=== PATIENT | female | born 1995 | race Caucasian/White ===

== ENCOUNTER 2020-04-26 18:15 | Emergency (ER) | payer SELFPAY ==
[2020-04-26 18:22] VITALS: BP 147/88; PULSE 92; RESP 20; TEMP 36.5; O2SAT 96
--- NOTE | 2020-04-26 18:30 | DI.RAD_ITS ---
EXAM: XR FOREARM LT CLINICAL HISTORY: Dog bite. TECHNIQUE: 2D digital imaging was performed. COMPARISON: No exams were available for comparison FINDINGS: BONES: No acute fracture is present. No bony destructive lesion is seen. Visualized portion of elbow and wrist joints are unremarkable. SOFT TISSUE: Mild soft tissue swelling on the dorsal lateral aspect of the forearm. No radiopaque fo reign bodies. IMPRESSION: Mild soft tissue swelling of the dorsal lateral aspect of the forearm. DATA REPOSITORY: RADIATION DOSE DELIVERED:
--- NOTE | 2020-04-26 18:47 | W.ED.GENAD ---
Discharge Plan Disposition Patient Disposition: HOME Condition: Stable Discharge Details Clinical Impression: Dog bite of left forearm Primary Care Provider: [facility] Provider: Leighann Hudson Home Meds and New Rx's Prescriptions: New amoxicillin-pot clavulanate [Augmentin] 875-125 mg tablet 1 tab PO BID 10 Days Qty: 20 RF: 0 Discharge Instructions Instructions: Rabies Vaccine (By injection), Rabies Immune Globulin (By injection), Animal Bite (ED) Additional Instructions: Follow up with primary care provider in 3-5 days. Return to ED sooner if any worsening or concerns. Increase oral fluids. Please take Tylenol or Ibuprofen with food every 4-6 hours as needed for pain and swelling. The rabies prophylaxis requires additional doses at day 0 which we gave you today, day 3, day 7 and day 14 from the bite. You may follow-up with the infusion center for this. You are placed on a care management list so they will help you facilitate these appointment for the rabies prophylaxis. Medical Decision Making 24-year-old female presents to the ED with chief complaint of dog bite to her left forearm, initial exam there is 2 superficial puncture wounds noted to the mid forearm with surrounding ecchymosis and swelling. Patient has full range of motion noted to her wrist and elbow, she states that she was walking along the street and met a person with a dog who asked her to come and help her socialize the dog. The dog latched on her arm for approximately 1 to 2 minutes and the fund controller of the dog ran off without answer any question about vaccination status. Please were contacted vaccination status of the dog is unknown at this time. Discussed rabies postexposure prophylaxis with patient and she does request the prophylaxis at this time. Patient given tetanus booster, rabies vaccine administered by staffing operations manager and rabies immunoglobulin infiltrated into the wound site by staffing operations manager. Imaging protocol: XR Left forearm. Views: 2 views. COMPARISON: No relevant prior studies available. FINDINGS: Normal anatomic alignment and bone density. No acutely displaced fracture or dislocation. No aggressive osseous lesions. Soft tissue swelling at the dorsal aspect of the forearm. No radiopaque foreign bodies. IMPRESSION: Soft tissue swelling at the dorsal aspect of the forearm without acute skeletal injury or radiopaque foreign bodies. Patient instructed to return for additional vaccine administration on day 3, 7, 14 and 21 if needed patient placed on care management list for follow-up to have this done in the infusion center if possible. Patient instructed to call if she does not hear from care management within 24 to 48 hours as day #3 is on Wednesday. Patient verbalized understanding. Discussed home care, rest ice compression elevation, discuss strict return instructions to return for any signs of infection or worsening, this text was generated using [employer] system, please disregard any oddities of phrase or misspellings. HPI General Mode of arrival: ambulatory. Date/Time Provider Initiated Documentation: 04/26/20 18:17. Limitations to Documentation: no limitations. Information obtained by: patient. HPI Narrative: 24-year-old female presents to the ED with chief complaint of dog bite to her left forearm, initial exam there is 2 superficial puncture wounds noted to the mid forearm with surrounding ecchymosis and swelling. Patient has full range of motion noted to her wrist and elbow, she states that she was walking along the street and met a person with a dog who asked her to come and help her socialize the dog. The dog latched on her arm for approximately 1 to 2 minutes and the fund controller of the dog ran off without answer any question about vaccination status. Please were contacted vaccination status of the dog is unknown at this time. Discussed rabies postexposure prophylaxis with patient and she does request the prophylaxis at this time. Related Data Home Medications Medication Instructions Recorded Confirmed amoxicillin-pot clavulanate 1 tab PO BID 10 Days #20 tab 04/26/20 [Augmentin] Previous Rx's Medication Instructions Recorded amoxicillin-pot clavulanate 1 tab PO BID 10 Days #20 tab 04/26/20 [Augmentin] Allergies Allergy/AdvReac Type Severity Reaction Status Date / Time dial soap Allergy Skin Rash Uncoded 04/26/20 18:26 General Stated Complaint: AnimalBite SOHAIL: 4 Review of Systems All systems reviewed & are unremarkable except as noted in HPI and below Integumentary/Breasts Skin/Breast: Reports wounds (Dog bite left forearm) [facility] Surgical History (Updated 04/26/20 @ 18:26 by Sydni Lopez) No history of previous surgery Social History Smoking/Tobacco Use Status: Current every day Tobacco Type: e-cigarettes Smoking risk assessment performed?: Yes Alcohol Intake: current Alcohol Intake frequency: holidays/special occasions only Drug use: Occasionally Substance use type: marijuana Do you feel safe at home: Yes Do you feel safe in your relationship?: Yes Exam Const General: cooperative, healthy appearing, comfortable, well developed and well groomed Nutritional Appearance: well nourished Orientation: alert, awake and oriented x3 Extrem Left upper extremity: elbow/forearm Elbow/forearm/wrist images: 1. Puncture wound 2. Puncture wound 3. Swelling ecchymosis Course Vital Signs Vital signs: Vital Signs Temperature 36.5 C 04/26/20 18:22 Pulse 92 H 04/26/20 18:22 Respiratory Rate 20 04/26/20 18:22 Blood Pressure 147/88 H 04/26/20 18:22 Pulse Oximetry 96 04/26/20 18:22 Temperature 36.5 C 04/26/20 18:22 Temperature Source Oral 04/26/20 18:22 Pulse 92 H 04/26/20 18:22 Respiratory Rate 20 04/26/20 18:22 Respiratory Effort Non-Labored 04/26/20 18:26 Blood Pressure 147/88 H 04/26/20 18:22 Blood Pressure Position Sitting 04/26/20 18:22 Pulse Oximetry 96 04/26/20 18:22 Oxygen Delivery Method Room Air 04/26/20 18:22 Oxygen Flow Rate 0 04/26/20 18:22 Pain Level 5 04/26/20 18:22
[2020-04-26] MEDS: Ibuprofen 600 MG TAB PO (18:55)
--- NOTE | 2020-04-26 19:22 | DI.VRAD_ITS ---
PROCEDURE INFORMATION: Exam: XR Left Forearm Exam date and time: 04/26/2020 6:47 PM Age: 24 years old Clinical indication: Other: Dog bite TECHNIQUE: Imaging protocol: XR Left forearm. Views: 2 views. COMPARISON: No relevant prior studies available. FINDINGS: Normal anatomic alignment and bone density. No acutely displaced fracture or dislocation. No aggressive osseous lesions. Soft tissue swelling at the dorsal aspect of the forearm. No radiopaque foreign bodies. IMPRESSION: Soft tissue swelling at the dorsal aspect of the forearm without acute skeletal injury or radiopaque foreign bodies. Dictated and Authenticated by: En Woo MD. Ordering:SHANIKA Lawton MD
[2020-04-26] MEDS: Rabies Immune Globulin 300 UNIT/ML VIAL 1632.94 UNIT IM (19:50)
--- NOTE | 2020-04-26 19:57 | NUR.NOTE ---
faxed dog bite report to [facility] health officer sagar Sadler Note:
[2020-04-26] MEDS: Amoxicillin 875/Clav. 125 TAB PO (20:11)
--- NOTE | 2020-04-26 20:18 | NUR.NOTE ---
Sent CM referral for follow up of rabies series following dog bite [facility] Sadler Note:
--- NOTE | 2020-04-27 05:45 | NUR.NOTE ---
Nursing Note: sent referral to cm to get patient set up for set of rabies series at infusion for days 3 ,7, and 14 . and to help establish a local pcp for health care [facility]
--- NOTE | 2020-04-27 08:07 | NUR.NOTE ---
Nursing Note: Orders for the remaining rabies vaccinations was faxed to Med/Surg per the nursing supervisor [employer] department. The original copy was sent to Medical Records for scanning. Rita Tran
--- NOTE | 2020-04-29 11:02 | PDOC.ERCMPRO ---
- If Service Date Differs Date of service: 04/29/20 Time of Service: 11:02 Care Management Progress Note Rafaela is seen in the ED on 04/26/2020 for a dog bite of left forearm. At the request of ED provider, MULUGETA coordinates a referral to Mallorie Quispe MD, of [facility], on-call provider, to assist patient in obtaining a follow-up appointment and in establishing care with a PCP. A referral is also made to [facility] for assistance with applying for health insurance, as Rafaela is currently uninsured. An appointment has already been scheduled for patient for today, 04/29/20, with infusion for rabies prophylaxis. MULUGETA spoke with Rafaela on the telephone and provided contact information for both [facility] and [facility] and instructed her to follow up with them if they have not called her within a day or two. Karlapatsymohan is aware of today's appointment with infusion.
== END 2020-04-26 21:02 | disposition home or self-care (01) ==
PROVIDERS: Emergency Provider Registered Nurse Emergency
DX: S51.852A Open bite of left forearm, initial encounter (principal); W54.0XXA Bitten by dog, initial encounter
CPT/HCPCS: 90471; 96372; 99284; 73090; 90675

== ENCOUNTER 2020-08-23 18:17 | Outpatient (REF) | payer OTHER, SELFPAY | END 2020-08-23 18:18 | disposition home or self-care (01) | LOC: LBN 18:17 | PROVIDERS: Visit Provider Physician Assistant Medical | DX: R30.0 Dysuria (principal) | CPT/HCPCS: 87077; 87086; 87186 ==